=== PATIENT | female | born 1975 | race Caucasian/White ===

== ENCOUNTER 2020-04-30 11:55 | Emergency (ER) | payer OTHER ==
[~2020-04-30] VITALS: Ht 167.6 cm; Wt 77.1 kg
[2020-04-30 12:08] VITALS: BP 129/90
--- NOTE | 2020-04-30 12:11 | NUR ---
Patient ambulated to the overflow tent for further care. RN evaluating the patient.
[2020-04-30 12:25] VITALS: BP 129/90
[2020-04-30] MEDS ORDERED: methylPREDNISolone SS 125 MG/2 ML VIAL IM ONE (12:25)
[2020-04-30] MEDS ORDERED: ALBUTEROL SULFATE/IPRATROPIU 3 ML SOL IH ONE ×2 (12:25→14:25)
--- NOTE | 2020-04-30 12:25 | NUR ---
45 y/o female from home c/o cough and chest discomfort due to asthma exacerbation. Pt states she used inhaler multiple times with no relief. RR even and unlabored, mild wheezing noted. VSS medhx: asthma
--- NOTE | 2020-04-30 12:32 | NUR ---
RT in tent for breathing treatment
[2020-04-30] MEDS ORDERED: methylPREDNISolone SS 125 MG/2 ML VIAL ONE (14:32)
--- NOTE | 2020-04-30 15:31 | NUR ---
Patient discharged with v/s stable. Written and verbal after care instructions given and explained. Patient alert, oriented and verbalized understanding of instructions. Ambulatory with steady gait. All questions addressed prior to discharge. ID band removed. Patient advised to follow up with PMD. Rx of albuterol inhaler and nebulizer, prednisone, and nebulizer system given. Patient educated on indication of medication including possible reaction and side effects. Opportunity to ask questions provided and answered.
== END 2020-04-30 15:31 | disposition home or self-care (01) ==
LOC: MED 11:55
DX: J45.901 Unspecified asthma with (acute) exacerbation (principal)
CPT/HCPCS: 94640; 96372; 99284; J2930